=== PATIENT | female | born 1975 | race African-American/Black ===

== ENCOUNTER 2016-11-26 15:05 | Emergency (ER) | payer BC ==
[~2016-11-26] VITALS: Ht 149.9 cm; Wt 74.4 kg
--- NOTE | ~2016-11-26 | EKG ---
PATIENT: MARCELA BASURTO UNIT #: [id number] Ventricular Rate: 83 BPM Atrial Rate: 83 BPM P-R Interval: 140 ms QRS Duration: 82 ms Q-T Interval: 388 ms QTC Calculation(Bezet): 455 ms P [place]: 36 degrees Calculated R [place]: -34 degrees Calculated T [place]: 22 degrees Diagnosis Line: Normal sinus rhythm with sinus arrhythmia Diagnosis Line: Possible Left atrial enlargement Diagnosis Line: Left axis deviation Diagnosis Line: Left ventricular hypertrophy Diagnosis Line: Cannot rule out Septal infarct , age undetermined Diagnosis Line: Abnormal ECG Diagnosis Line: No previous ECGs available Diagnosis Line: Confirmed by MELISSA ALONSO MD ([id number]) on 11/26/2016 Diagnosis Line: 8:02:45 PM INTERPRETING MD: GAVIN MCCULLOUGH
[2016-11-26 16:12] LABS: POC - CKMB 2.9 ng/mL (0.0-7.9); POC - TROPONIN <0.05 ng/mL (<=0.05)
[2016-11-26 16:16] LABS: BASOPHIL# 0.1 X10e3 (0-0.3); BASOPHIL% 1.1 % (0-2.5); EOSINOPHIL# 0.2 X10e3 (0-0.7); EOSINOPHIL% 3.7 % (0.0-7.0); HEMATOCRIT 38.2 % (35.0-45.0); HEMOGLOBIN 13.2 gm/dL (12.0-16.0); MEAN CELL VOLUME 95.3 FL (83-96); MEAN CORPUSCULAR HEMOGLOBIN 32.9 PG (28-34); MEAN CORPUSCULAR HGB CONC 34.5 g/dL (30-36); MEAN PLATELET VOLUME 7.7 FL (6.5-11.5); MONOCYTE# 0.4 X10e3 (0-1.0); MONOCYTE% 7.3 % (3.0-12.0); NEUTROPHIL# 2.5 X10e3 (1.5-7.1); NEUTROPHIL% 48.9 % (40-75); PLATELET COUNT 385 X10e3 (140-420); RED BLOOD COUNT 4.01 X10e (3.90-5.30); RED CELL DISTRIBUTION WIDTH 12.9 % (11.0-15.5); WHITE BLOOD COUNT 5.2 X10e3 (4.0-10.5)
[2016-11-26 16:20] LABS: DIFF IND NO
[2016-11-26 16:43] LABS: CALCIUM SERUM 9.3 mg/dL (8.4-10.2); GLOM FILT RATE Estimated 79.9 mL/min (>60); POTASSIUM 3.8 mmol/L (3.5-5.1)
[2016-11-26 18:14] LABS: POC - CKMB 2.3 ng/mL (0.0-7.9); POC - TROPONIN <0.05 ng/mL (<=0.05)
== END 2016-11-26 20:23 | disposition home or self-care (01) ==
LOC: CED 15:05
PROVIDERS: Emergency Medicine
DX: I10 Essential (primary) hypertension (principal); R20.2 Paresthesia of skin; Z90.710 Acquired absence of both cervix and uterus
CPT/HCPCS: 36415; 80048; 82553; 84484; 85025; 93005; 96361; 96374; 99284; J3490